=== PATIENT | male | born 1980 | race Two or more races ===

== ENCOUNTER 2024-09-03 09:31 | Emergency (ER) | payer MEDICAID, SELFPAY ==
[2024-09-03 09:46] VITALS: BP 106/71; PULSE 94; RESP 16; TEMP 36.6; O2SAT 98; BMI 17.8
--- NOTE | 2024-09-03 09:51 | PD.EDRME ---
Rapid Medical Screening Exam RME Arrival date/time: 09/03/24 09:31 43-year-old male insulin-dependent diabetic presents the emergency department today stating he went to the doctor's office to get medication refilled was instructed to go to the ER for elevated blood sugar patient does confirm that he does not take his medication regularly Chief Complaint: Recheck/Abnormal Lab/Rx Vital signs: Vital Signs Temperature 97.8 F 09/03/24 09:46 Pulse Rate 94 09/03/24 09:46 Respiratory Rate 16 09/03/24 09:46 Blood Pressure 106/71 09/03/24 09:46 Pulse Oximetry (%) 98 09/03/24 09:46 Oxygen Delivery Method Room Air 09/03/24 09:46
[2024-09-03 10:18] LABS: Base Excess, Venous 2 (-3-3); O2 Saturation, Venous 54 % (96-97); PCO2, Venous 45 mmHg (36-56); PO2, Venous 27 mmHg (15-58)
[2024-09-03 10:20] LABS: Beta Hydroxybutyrate 0.1 mmol/L (<0.6)
[2024-09-03 10:22] LABS: Basophils # (Auto) 0.2 Thou/mm3 (0.0-0.2); Basophils % (Auto) 2 % (0-2.5); Eosinophils % (Auto) 0 % (0-10); Hematocrit 45.3 % (41.0-53.0); Hemoglobin 15.7 g/dL (13.5-16.0); Immature Granulocytes % (Auto) 0 % (0-0); Immature Granulocytes Auto 0.02 Thou/mm3 (0.00-0.00); Lymphocytes # (Auto) 2.4 Thou/mm3 (1.0-4.8); Lymphocytes % (Auto) 25 % (10-50); Mean Corpuscular HGB Conc 34.7 g/dl (31.0-37.0); Mean Corpuscular Hemoglobin 29.6 pg (25.0-35.0); Mean Corpuscular Volume 85 fL (80-100); Monocytes # (Auto) 0.5 Thou/mm3 (0.0-0.8); Monocytes % (Auto) 6 % (0-12); Neutrophils # (Auto) 6.4 Thou/mm3 (1.8-7.7); Neutrophils % (Auto) 67 % (37-80); Nucleated Red Blood Cell % 0 /100 WBC (0); Platelet Count 419 Thou/mm3 (140-440); RDW Standard Deviation 39.8 fL (35.1-43.9); Red Blood Count 5.31 Miln/mm3 (4.50-5.90); White Blood Count 9.5 Thou/mm3 (3.8-10.6)
[2024-09-03 10:44] LABS: Alanine Aminotransferase 39 U/L (10-49); Albumin, Serum 4.2 gm/dL (3.5-5.0); Albumin/Globulin Ratio 1.5 (1.2-2.2); Alkaline Phosphatase 194 U/L (46-116); Anion Gap 5 (7-16); Aspartate Amino Transferase 13 U/L (0-34); BUN/Creatinine Ratio 15 Ratio (12-20); Bilirubin,Total 0.4 mg/dL (0.3-1.2); Blood Urea Nitrogen 17 mg/dL (9-23); Carbon Dioxide 27.4 mMol/L (20.0-31.0); Chloride 101 mMol/L (98-107); Creatinine (Component) 1.1 mg/dL (0.6-1.3); Estimated Creatinine Clearance 59.4 mL/min (>60); Globulin 2.8 gm/dL (2.3-3.5); Osmolality,Calculated 286 (275-295); Potassium 4.5 mMol/L (3.4-5.1); Sodium 133 mMol/L (136-145); eGFR > 60 See Note
[2024-09-03 10:46] LABS: Glucose 444 mg/dL (74-106)
[2024-09-03 11:10] LABS: Collection Type, Urine Clean Catch
[2024-09-03 11:35] LABS: Bilirubin,Urine Negative (Negative); Blood,Urine Negative (Negative); Clarity,Urine Clear (Clear/Hazy); Color,Urine Lt-Yellow (Lt Yel-Yel); Culture Indicated,Urine Not Indicated; Glucose, Urine 4+ (Negative); Ketones,Urine Trace (Negative); Leukocyte Esterase,Urine Positive (Negative); Nitrite,Urine Negative (Negative); Protein,Urine Trace (Neg - Trace); RBC,Urine 2 /hpf (0-3); Specific Gravity,Urine 1.035 (1.001-1.035); Sperm,Urine Present; Squamous Epithelial Cell,Urine 1 /hpf (0-5); Urobilinogen,Urine Negative mg/dL (0.0-1.0); WBC,Urine 4 /hpf (0-5)
[2024-09-03 11:37] LABS: Misc Send Out* See Sep Rpt
[2024-09-03] MEDS: SODIUM CHLORIDE 0.9% 1000 ML 1,000 ML 999 ML IV (14:54)
[2024-09-03] MEDS: INSULIN HUM REGULAR 1 UNIT/0.01 ML (PER UNIT) 15 UNIT IV (15:10)
--- NOTE | 2024-09-03 16:13 | PC.NURSE ---
patient left AMA at 1605. Patient educated on risk of leaving against medial advice, patient FSBS check was 600. Patient stated he did not want any more medications or to wait any longer. Patient encouraged to return to ER at anytime.
== END 2024-09-03 16:02 | disposition left against medical advice (07) ==
PROVIDERS: Nurse Practitioner Primary Care; Emergency Provider Emergency Medicine; PCP Family Medicine
DX: E11.65 Type 2 diabetes mellitus with hyperglycemia (principal); Z79.4 Long term (current) use of insulin; Z53.29 Procedure and treatment not carried out because of patient's decision for other reasons
CPT/HCPCS: 36415; 80053; 81001; 82010; 82803; 83036; 85025; 96360; 99284; J1815; J7030

== ENCOUNTER 2024-09-16 22:04 | Inpatient (IN) | payer MEDICAID, SELFPAY ==
[2024-09-16 22:42] VITALS: BP 113/75; PULSE 94; RESP 20; TEMP 36.7; O2SAT 97
--- NOTE | 2024-09-16 22:52 | XR_ITS ---
Examination: Foot, right, 3 views Technique: AP, oblique, lateral views foot, 3 views Date and time of exam: September 16, 2024 1102 hrs. Indications: Redness swelling and pain involving the foot this week Findings: Small erosion distal fifth metatarsal with associated soft tissue swelling Soft tissue defect first digit Suspicious for early cortical erosion along the shaft of the distal phalanx first digit, second digit side No fracture No foreign body Impression: Suspicious for early osteomyelitis distal phalanx first digit and distal fifth metatarsal Consider MRI foot without contrast follow-up
--- NOTE | 2024-09-16 22:53 | PD.EDRME ---
Rapid Medical Screening Exam RME Arrival date/time: 09/16/24 22:04 43-year-old male with a history of diabetes reports with complaint of wound on the foot, with swelling, redness and warmth Chief Complaint: Wound/Laceration Time Seen by Provider: 09/16/24 22:20 Vital signs: Vital Signs Temperature 98.1 F 09/16/24 22:42 Pulse Rate 94 09/16/24 22:42 Respiratory Rate 20 09/16/24 22:42 Blood Pressure 113/75 09/16/24 22:42 Pulse Oximetry (%) 97 09/16/24 22:42 Oxygen Delivery Method Room Air 09/16/24 22:42
[2024-09-16 23:33] LABS: Basophils # (Auto) 0.2 Thou/mm3 (0.0-0.2); Basophils % (Auto) 2 % (0-2.5); Eosinophils # (Auto) 0.3 Thou/mm3 (0.0-0.5); Eosinophils % (Auto) 2 % (0-10); Hematocrit 39.7 % (41.0-53.0); Hemoglobin 13.7 g/dL (13.5-16.0); Immature Granulocytes % (Auto) 0 % (0-0); Immature Granulocytes Auto 0.02 Thou/mm3 (0.00-0.00); Lymphocytes # (Auto) 3.9 Thou/mm3 (1.0-4.8); Lymphocytes % (Auto) 35 % (10-50); Mean Corpuscular HGB Conc 34.5 g/dl (31.0-37.0); Mean Corpuscular Hemoglobin 29.8 pg (25.0-35.0); Mean Corpuscular Volume 87 fL (80-100); Monocytes # (Auto) 0.8 Thou/mm3 (0.0-0.8); Monocytes % (Auto) 7 % (0-12); Neutrophils % (Auto) 54 % (37-80); Nucleated Red Blood Cell % 0 /100 WBC (0); Platelet Count 207 Thou/mm3 (140-440); RDW Standard Deviation 40.5 fL (35.1-43.9); Red Blood Count 4.59 Miln/mm3 (4.50-5.90); White Blood Count 11.2 Thou/mm3 (3.8-10.6)
[2024-09-17] VITALS (7 sets, daily range): BP systolic 112–130; BP diastolic 73–83; PULSE 77–87; RESP 16–18; TEMP 36.3–36.7; O2SAT 95–98; BMI 19.8; BMI 19.7
[2024-09-17 00:27] LABS: Lactate (Lactic Acid) 1.8 mMol/L (0.4-2.0)
[2024-09-17 00:42] LABS: Sed Rate (ESR) 24 mm/hr (0-15)
[2024-09-17 01:05] LABS: Alanine Aminotransferase 29 U/L (10-49); Albumin, Serum 4.2 gm/dL (3.5-5.0); Albumin/Globulin Ratio 1.5 (1.2-2.2); Alkaline Phosphatase 137 U/L (46-116); Anion Gap 9 (7-16); Aspartate Amino Transferase 43 U/L (0-34); BUN/Creatinine Ratio 14 Ratio (12-20); Bilirubin,Total 0.4 mg/dL (0.3-1.2); Blood Urea Nitrogen 14 mg/dL (9-23); Calcium 10.1 mg/dL (8.3-10.6); Calcium (Corrected) 10.1 mg/dL (8.5-10.1); Carbon Dioxide 25.7 mMol/L (20.0-31.0); Chloride 99 mMol/L (98-107); Estimated Creatinine Clearance 68.4 mL/min (>60); Globulin 2.8 gm/dL (2.3-3.5); Glucose 377 mg/dL (74-106); Osmolality,Calculated 283 (275-295); Procalcitonin 0.08 ng/ml (0.0-0.49); Sodium 134 mMol/L (136-145); eGFR > 60 See Note
--- NOTE | 2024-09-17 01:22 | EDNOTE_ITS ---
ED Wound/Laceration-RME/HPI General Chief Complaint: Wound/Laceration Stated Complaint: WOUND TO RIGHT FOOT/HIGH BLOOD SUGAR Time Seen by Provider: 09/16/24 22:20 Arrival date/time: 09/16/24 22:04 RME / HPI RME / HPI narrative: 09/16/24 22:04 43-year-old male with a history of diabetes reports with complaint of wound on the foot, with swelling, redness and warmth Dr. Jerez?s Main ED Evaluation: 43yo male with a history of DM presents to the ED for a wound to his right foot. Family at bedside states the patient tends to get bad calluses on his feet, reporting the patient was scraping them off a couple days ago and has since developed a wound to his right foot. Patient was seen by his PCP today and was sent over here for evaluation. No fever, chills or any other associated symptoms reported. Related Data Home Medications ?Medication ?Instructions ?Recorded ?Confirmed insulin human U-100 NPH-regulr 1 sliding scale dose hatch bcut 10/23/20 10/23/20 70-30 mix 100 unit/mL subcutaneous USEASDIRECTD susp metformin 1,000 mg tablet 1,000 mg PO BID 10/23/2009/13 Previous Rx's ?Medication ?Instructions ?Recorded ibuprofen 600 mg tablet 600 mg PO TID PRN pain #30 t abs 05/01/22 Allergies Allergy/AdvReac Type Severity Reaction Status Date / Time No Known Allergies Allergy Verified 10/23/20 22:24 Review of Systems Review of Systems Systems Reviewed: All systems reviewed, normal except as documented Past Medical History Past Medical History CARDIAC: Negative Congestive Heart Failure RESPIRATORY: Negative Chronic Obstructive Pulmonary Disease (COPD) GENITOURINARY: Negative Renal Disease ENDOCRINE: Positive Endocrine Disorders and Diabetes Mellitus Type 2; Negative Diabetes Mellitus Type 1 Social History SMOKING STATUS: Current every day smoker ED Exam Narrative Physical exam: GENERAL APPEARANCE: alert and oriented x 4, well-developed, well-nourished, no acute distress VITALS: All vitals were reviewed and the pulse ox is 97% on room air, which is normal according to my interpretation. HEENT: Normocephalic, atraumatic; pupils equal, round, reactive to light; EOMI; mucous membranes pink, moist; oropharynx clear NECK: Supple LUNGS: CTABL; no wheezes, no rales, no rhonchi HEART: Regular rate, regular rhythm; normal S1, S2; no murmurs ABDOMEN: non distended; normal BS; soft, no tenderness, no guarding, no rebound; no masses, no organomegaly, no hernia BACK: no CVA tenderness EXTREMITIES: atraumatic; no edema; macerated callus to the plantar surface of the right foot with surrounding erythema and erythema of the great toe NEUROLOGIC: awake; alert and oriented x4; cranial nerves II-XII grossly intact; no focal sensory or motor deficits PSYCHIATRIC: appropriate mood and affect SKIN: warm, dry, normal color; no rashes Course Quality Measures none Orders Category Date Time Status XR foot comp RT min 3V Stat Exams 09/16/24 22:52 Completed Blood Culture (Lab) Stat Lab 09/17/24 00:00 Received CBC Stat Lab 09/16/24 23:10 Completed CMP [Comprehensive Metabolic Panel] Stat Lab 09/17/24 00:00 Completed Lactate (Lactic Acid) Stat Lab 09/17/24 00:00 Completed Procalcitonin Stat Lab 09/17/24 00:00 Completed Sed Rate (ESR) Stat Lab 09/16/24 23:10 Completed Wound Culture and Gram Stain Stat Lab 09/16/24 22:53 Ordered Piper/Tazo Inj [Zosyn Inj] 3.375 gm Med 09/17/24 01:25 Active SODIUM CHLORIDE 0.9% (Popper) [NS 0.9% (Popper)] 50 ml IV X1 Vancomycin Inj 1,000 mg Med 09/17/24 01:25 Active Sodium Chloride 0.9% 250 ml [Ns] 250 ml IV X1 Vital Signs Vital signs: Vital Signs Temperature 98.1 F 09/16/24 22:42 Pulse Rate 94 09/16/24 22:42 Respiratory Rate 20 09/16/24 22:42 Blood Pressure 113/75 09/16/24 22:42 Pulse Oximetry (%) 97 09/16/24 22:42 Oxygen Delivery Method Room Air 09/16/24 22:42 Wound / Laceration MDM Narrative MDM Narrative:: Scribe Attestation: 09/17/24 - Ammon, Any Felix am scribing for and in the presence of Dr. Jerez. Patient data External records reviewed:: [facility] previous records (Per chart review, patient has no relevant previous ED visits.) Clinical information provided by:: patient and family Social determinants that could affect healthcare access:: none Patient has the following chronic illnesses:: DM How is presenting disease/condition affected by chronic disease/condition?: exacerbated by Evaluation data The following diagnostics were reviewed and interpreted by me:: lab results and radiology exam(s) Lab and/or radiology exams considered but not ordered:: none Interpretation Summary: WBC count is slightly elevated at 11.2, ESR is slightly elevated at 24, Glucose is 377, Lactic Acid is normal, Procalcitonin is normal, according to my interpretation. ------- [facility] Report Signed Patient: KAMYRN HASKINS Record#: [id number] Birthdate: 1980 Age/Sex: 43 / M Location: [facility] Attending Dr: Ordering Physician: Isaac Alexander PA-C Date of Service: 09/16/24 Procedure(s): XR foot comp RT min 3V Accession Number(s): [id number] cc: Anshu Major MD; Isaac Alexander PA-C~ Examination: Foot, right, 3 views Technique: AP, oblique, lateral views foot, 3 views Date and time of exam: September 16, 2024 1102 hrs. Indications: Redness swelling and pain involving the foot this week Findings: Small erosion distal fifth metatarsal with associated soft tissue swelling Soft tissue defect first digit Suspicious for early cortical erosion along the shaft of the distal phalanx first digit, second digit side No fracture No foreign body Impression: Suspicious for early osteomyelitis distal phalanx first digit and distal fifth metatarsal Consider MRI foot without contrast follow-up Dictated By: Anshu Major MD Signed By: <Electronically signed by Anshu Major MD in OV> 09/16/24 2350 Medications / Prescriptions Medications or Prescriptions considered but not ordered:: none Medication administrations:: Medication Administration History Vancomycin HCl 1,000 mg/ (Sodium Chloride) 250 mls @ 150 mls/hr IV X1 ONE Stop: 09/17/24 03:04 Piperacillin Sod/Tazobactam (Sod 3.375 gm/ Sodium Chloride) 50 mls @ 100 mls/hr IV X1 ONE Stop: 09/17/24 01:54 see above Consultations Consultation(s) initiated? (list below): Yes Consultation #1 (Physician, Specialty, Details): Discussed case with [Dr. Lucero] from Hospitalist service regarding admission. Discussed patients ED course, exam findings, labs, and radiology results. The Hospitalist [agrees] to accept the patient for admission. Time: 01:26 Diagnosis Wound Differential Diagnosis: other (diabetic foot ulcer, osteomyelitis, cellulitis) Most likely diagnosis given after review of the tests above:: see below Admission Indicated Admission indicated?: indicated Admission Request Was there a request for admission?: Yes Admission Attestation Admission request attestation: Discussed case with [] from Hospitalist service regarding admission. Discussed patients ED course, exam findings, labs, and radiology results. The Hospitalist [agrees,declines] to accept the patient for admission. Disposition Plan Disposition Plan: Admit Discharge Plan Plan Patient Disposition: Admit Acute Care w/in Hospital Prescriptions/Referrals Prescriptions/Med Rec: No Action insulin NPH and regular human 100 unit/mL (70-30) Suspension 1 sliding scale dose SUBCUT USEASDIRECTD metformin 1,000 mg Tablet 1,000 mg PO BID ibuprofen 600 mg tablet 600 mg PO TID PRN (Reason: pain) Qty: 30 0RF Referrals: Grzegorz Felix MD [Primary Care Provider] - In 1 week Problem List Clinical Impression: Diabetic foot ulcer, Hyperglycemia, Osteomyelitis, Noncompliance with medications Patient/Caregiver Discharge Instructions Print Language: Slovak Stand Alone Forms: [place] Award Info., Patient Portal Info Letter
[2024-09-17] MEDS: PIPER/TAZO INJ 3.375 GM in SODIUM CHLORIDE 0.9% (Popper) 50 ML IV (01:45)
--- NOTE | 2024-09-17 01:54 | ESHP_ITS ---
Documentation for date of: 09/17/24 [facility] History of Present Illness History of present illness: This is a 43-year-old male with PMHx of poorly controlled IDDM presenting with right foot pain. 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 He has recurrent bilateral foot calluses as a result. He tried scraping calluses on both of his feet. Evidently his right foot became swelling, foul-smelling and painful. He has been on INSULIN since 2005. Reports nonadherence to his INSULIN regimen. Often unable to obtain his INSULIN from pharmacy, other times forgets to take his INSULIN. Reports chronic bilateral lower extremity burning sensation, not relieved by OTC ANALGESICS. He sees [facility] for diabetes management, but does not follow-up regularly. Denies fever, chills, headaches, fall or trauma, chest pain, shortness of breath, cough, abdominal pain, N/V/D/C, dysuria, urinary urgency or frequency. ED COURSE: Vitals within normal limit. WBC 11.2, otherwise CBC within normal limits. Chemistry panel significant for GLUCOSE 377, sodium 134, AST 43, ALP 137. Right foot x-ray showed early osteomyelitis distal phalanx first digit and distal fifth metatarsal. PMHx: IDDM PSHx: None MEDS: INSULIN (dosage unknown) ALLERGIES: NKA FHx: Unknown SH: Denies alcohol, tobacco, or drug use. Exam Vital Signs Temp Pulse Resp BP Pulse Ox O2 Del Method 98.1 F 77 16 116/74 97 Room Air 09/17/24 01:08 09/17/24 01:08 09/17/24 01:08 09/17/24 01:08 09/17/24 01:08 09/17/24 01:08 Narrative Exam GENERAL * Cachectic, pale appearing male. No apparent distress. HEENT * NCAT.?KATIA. Oral mucosa is moist. Patent Nares NECK * Supple, nontender, no thyromegaly, no meningismus, no JVD, no step offs CHEST * RRR, no m/g/r * CTAB, no w/r/r. Symmetrical chest rise. No intercostal subcostal retraction * Atraumatic, nontender, no crepitus, symmetrical expansion. ABDOMEN * Soft, flat, nontender. No guarding/rebound tenderness/masses. * Bowel sounds presents EXTREMITIES * No edema/cyanosis.? * 2+ pulses in bilateral upper and lower extremities. SKIN * Warm and dry, no jaundice. * Right foot: Large purulent ulcer of distal plantar foot. * Chronic lipoma of left forehead noted. NEUROMUSCULAR * No lumbar or midline, no CVA, no paraspinal muscle spasm or tenderness. * Moves all 4 extremities well, with full ROM and good CSM. * HERMOSILLO x4, CN II-XII grossly intact. * No focal neurologic deficits. PSYCHIATRY * Normal mood and affect, cooperative, no SI or HI or hallucinations. Results: Labs 09/16/24 23:10 09/17/24 00:00 Labs: Short CBC 09/16/24 Range/Units 23:10 WBC 11.2 H (3.8-10.6) Thou/mm3 Hgb 13.7 (13.5-16.0) g/dL Hct 39.7 L (41.0-53.0) % Plt Count 207 D (140-440) Thou/mm3 BMP 09/17/24 00:00 Sodium 134 L Potassium 4.0 Chloride 99 Carbon Dioxide 25.7 BUN 14 Creatinine 1.0 Glucose 377 H Calcium 10.1 Liver Function 09/17/24 Range/Units 00:00 Total Bilirubin 0.4 (0.3-1.2) mg/dL AST 43 H (0-34) U/L ALT 29 (10-49) U/L Alkaline Phosphatase 137 H (46-116) U/L Albumin 4.2 (3.5-5.0) gm/dL Quality Measures Quality Measures none Medications Home Medications and Allergies Home Medications ?Medication ?Instructions ?Recorded ?Confirmed ?Type insulin human U-100 NPH-regulr 1 sliding scale dose hatch bcut 10/23/20 10/23/20 History 70-30 mix 100 unit/mL subcutaneous USEASDIRECTD susp metformin 1,000 mg tablet 1,000 mg PO BID 10/23/2009/13 History Allergies Allergy/AdvReac Type Severity Reaction Status Date / Time piperacillin (From Zosyn) AdvReac Mild Nausea Verified 09/17/24 02:32 tazobactam (From Zosyn) AdvReac Mild Nausea Verified 09/17/24 02:32 Visit Medications Acetaminophen (Acetaminophen 325 Mg Tablet) 650 mg PO Q6H PRN PRN Reason: PAIN SCALE 1-3 (mild Stop: 10/17/24 01:48 Acetaminophen (Acetaminophen 325 Mg Tablet) 650 mg PO Q6H PRN PRN Reason: Fever >100.4 Stop: 10/17/24 01:48 Hydrocodone Bitart/Acetaminophen (Hydrocodone/Apap 10/325 Tab) 1 tab PO Q4HR PRN PRN Reason: PAIN SCALE 7-10 (Severe Stop: 09/22/24 01:48 Dextrose (Dextrose 50%-Water Inj 50 Ml Syringe) 25 ml IV Q15MIN PRN PRN Reason: BG 50-70 responsive npo pt Stop: 10/17/24 01:48 Dextrose (Dextrose 50%-Water Inj 50 Ml Syringe) 50 ml IV Q15MIN PRN PRN Reason: BG <50 OR BG <70 & pt unresponsive Stop: 10/17/24 01:48 Glucagon (Glucagon Inj 1 Mg Vial) 1 mg IM Q15MIN PRN PRN Reason: BG <70, and no IV access Glucagon (Glucagon Inj 1 Mg Vial) 1 mg IM Q15MIN PRN PRN Reason: BG <70, and no IV access Heparin Sodium (Porcine) (Heparin Sod Inj 5000 Unit/Ml Vial) 5,000 unit SC BID [facility] Stop: 10/01/24 08:59 Vancomycin HCl 1,000 mg/ (Sodium Chloride) 250 mls @ 150 mls/hr IV X1 ONE Stop: 09/17/24 03:04 Cefepime HCl 2 gm/ Sodium (Chloride) 50 mls @ 100 mls/hr IV Q8HR [facility] Stop: 09/24/24 01:47 Sodium Chloride (Ns) 1,000 mls @ 75 mls/hr IV .[id number] [facility] Stop: 10/17/24 01:59 Insulin Human Lispro (Insulin Lispro (Admelog) 1 Unit/0.01 Ml Unit) [facility]; Protocol Stop: 10/17/24 07:29 Ondansetron HCl (Ondansetron Inj 2 Mg/Ml Inj 2 Ml) 4 mg IV Q6H PRN; Protocol PRN Reason: NAUSEA OR VOMITING Stop: 10/17/24 01:48 Oxycodone/Acetaminophen (Oxycodone/Apap 5/325 Tablet) 1 tab PO Q6H PRN PRN Reason: PAIN SCALE 4-6 (Moderate Stop: 09/22/24 01:48 Pharmacy Consult (Vancomycin Pharmacy To Dose 1 Each Each) 1 each IV QDAY YANETH Stop: 10/17/24 08:59 Discontinued Medications Piperacillin Sod/Tazobactam (Sod 3.375 gm/ Sodium Chloride) 50 mls @ 100 mls/hr IV X1 ONE Stop: 09/17/24 01:54 Last Admin: 09/17/24 01:45 Dose: 100 mls/hr Assessment & Plan Plan In summary: 43-year-old male with PMHx of insulin-dependent diabetes, admitted for early osteomyelitis of right foot. Appreciate recommendations from infectious disease and dietitian. Early osteomyelitis of right foot Leukocytosis Presented with 2 days of distal, plantar right foot swelling, and purulent discharge. Symptoms started following self debridement of bilateral foot calluses. He works in a dairy farm, prone to forming calluses from longstanding. WBC 11.2. No signs of symptoms of systemic infection. Right foot x-ray showed early osteomyelitis distal phalanx first digit and distal fifth metatarsal. ? Pain control ? Continue VANCOMYCIN and CEFEPIME (09/17 to present) ? Continue NS maintenance at 75 cc an hour ? Consider MRI of right foot ? Wound care ? Pending blood culture ? Pending ID recommendations IDDM Poorly controlled diabetes, medication noncompliance. Admission GLUCOSE 377. Does not know his home insulin dose. He was here on 09/03 with elevated GLUCOSE of 444, managed with IV INSULIN at this time. No signs of symptoms of DKA. ? Continues GLARGINE 15 units HS ? Continue Lispro 5 unit TID ? INSULIN sliding scale ? Accu-Cheks ? Pending A1c ? Diabetic education placed Protein calorie malnutrition, mild Has signs of pale scale, cachexia, and overall appears older than age. BMI 19.8. ? Pending registered dietitian recommendation Diabetic neuropathy Admits to chronic burning sensation in bilateral lower extremities. Sensation intact throughout. ? Started GABAPENTIN 100 mg TID Mild transaminitis AST 43, likely dehydrational. Anticipate improvement with fluids as above. ? Daily labs Health maintenance Diet: CHO consistent, low carb. GI prophylaxis: Not indicated. DVT prophylaxis: HEPARIN subcu. Antibiotics: VANCOMYCIN, CEFEPIME. CODE STATUS: Full code. Disposition: Treating osteomyelitis. Patient case was discussed with attending, Aruna Veras MD. Leah Tejada DO PGYI Attending Provider Attestation/Addendum I attest that I was physically present for the evaluation, physical examination, lab and imaging review of the patient with the residents. I discussed the case with the residents and agree with the findings and plans of care as documented above. Patient is a 43 years old male with past medical history of diabetes mellitus who presented to the ED with complaint of right foot pain. Patient has recurrent bilateral foot calluses, which he attempted to scrape couple days ago following which right foot started swelling, had foul-smelling and was painful. Patient has been on insulin regimen for his diabetes but is noncompliant with his regimen. In the ED, he was found to have glucose of 377, WBC 11.2, ALP 137. Vital signs are within normal limits. Right foot x-ray was done which shows early osteomyelitis of distal phalanx of first digit and fifth metatarsal. We will admit the patient for management of early osteomyelitis of right foot. Started on vancomycin and cefepime, we will obtain blood culture and wound culture along with ID recommendation. Started on insulin regimen for diabetes. Milena Veras MD
[2024-09-17] MEDS: ONDANSETRON INJ 2 MG/ML INJ 2 ML 4 MG IV (02:08)
[2024-09-17] MEDS: SODIUM CHLORIDE 0.9% 1000 ML 1,000 ML 75 ML IV (02:15)
[2024-09-17] MEDS: CEFEPIME INJ 2 GM in SODIUM CHLORIDE 0.9% (Popper) 50 ML IV ×4 (02:16→21:08)
[2024-09-17] MEDS: Vancomycin Inj 1,000 MG in SODIUM CHLORIDE 0.9% 250 ML 250 ML 150 MG IV (02:37)
[2024-09-17 05:43] LABS: Basophils # (Auto) 0.2 Thou/mm3 (0.0-0.2); Basophils % (Auto) 2 % (0-2.5); Eosinophils # (Auto) 0.2 Thou/mm3 (0.0-0.5); Eosinophils % (Auto) 2 % (0-10); Hemoglobin 13.1 g/dL (13.5-16.0); Immature Granulocytes % (Auto) 0 % (0-0); Immature Granulocytes Auto 0.02 Thou/mm3 (0.00-0.00); Lymphocytes # (Auto) 3.6 Thou/mm3 (1.0-4.8); Lymphocytes % (Auto) 32 % (10-50); Mean Corpuscular HGB Conc 34.5 g/dl (31.0-37.0); Mean Corpuscular Hemoglobin 29.9 pg (25.0-35.0); Mean Corpuscular Volume 87 fL (80-100); Monocytes # (Auto) 0.8 Thou/mm3 (0.0-0.8); Monocytes % (Auto) 7 % (0-12); Neutrophils # (Auto) 6.4 Thou/mm3 (1.8-7.7); Neutrophils % (Auto) 57 % (37-80); Nucleated Red Blood Cell % 0 /100 WBC (0); Platelet Count 215 Thou/mm3 (140-440); RDW Standard Deviation 40.6 fL (35.1-43.9); Red Blood Count 4.38 Miln/mm3 (4.50-5.90); White Blood Count 11.2 Thou/mm3 (3.8-10.6)
[2024-09-17] MEDS: GABAPENTIN 100 MG CAPSULE PO ×3 (06:01→21:08)
[2024-09-17 07:18] LABS: Alanine Aminotransferase 23 U/L (10-49); Albumin, Serum 3.5 gm/dL (3.5-5.0); Albumin/Globulin Ratio 1.5 (1.2-2.2); Alkaline Phosphatase 135 U/L (46-116); Anion Gap 10 (7-16); Aspartate Amino Transferase 23 U/L (0-34); BUN/Creatinine Ratio 14 Ratio (12-20); Bilirubin,Total 0.3 mg/dL (0.3-1.2); Blood Urea Nitrogen 13 mg/dL (9-23); Calcium (Corrected) 9.4 mg/dL (8.5-10.1); Carbon Dioxide 25.5 mMol/L (20.0-31.0); Chloride 99 mMol/L (98-107); Creatinine (Component) 0.9 mg/dL (0.6-1.3); Estimated Creatinine Clearance 75.5 mL/min (>60); Globulin 2.3 gm/dL (2.3-3.5); Osmolality,Calculated 288 (275-295); Phosphorous 2.8 mg/dL (2.4-5.1); Potassium 3.9 mMol/L (3.4-5.1); Sodium 134 mMol/L (136-145); Total Protein 5.8 gm/dL (5.7-8.2); eGFR > 60 See Note
[2024-09-17 07:24] LABS: Glucose 451 mg/dL (74-106)
[2024-09-17] MEDS: INSULIN LISPRO (AdmeLOG) 1 UNIT/0.01 ML UNIT SC ×2 (07:32→12:19)
[2024-09-17] MEDS: INSULIN LISPRO (AdmeLOG) 1 UNIT/0.01 ML UNIT 5 UNIT SC (07:34)
[2024-09-17] MEDS: HEPARIN SOD INJ 5000 UNIT/ML VIAL SC ×2 (08:02→20:29)
--- NOTE | 2024-09-17 09:52 | XR_ITS ---
Examination: MRI right foot, without contrast Date and time of exam: September 17, 2024 1050 hrs. Indications: Nonhealing wound right foot Technique: Multiple axial sagittal and coronal images of the right thyroid have been obtained with the Siemens high-resolution 1.5 Sharon MRI scanner. Images obtained include T2-weighted fat-suppressed sagittal sections, TR 3500, TE 46, T2 weighted coronal fat suppressed images, TR 3050, TE 84, T2-weighted transverse fat suppressed images, TR 3260, TE 63, proton density transverse images, TR 4720 TE 46, and T1 weighted coronal images, TR 560, TE 13. Findings: Subtle edema dorsum and plantar aspect of the foot No miryam cortical bone destruction involving tarsal bones metatarsals or digits No soft tissue abscess Biconvex thickening of the Achilles tendon Mild plantar fasciitis Cystic change in the talus Moderate narrowing tibiotalar joint Impression: No soft tissue abscess No miryam cortical bone destruction Achilles tendinosis Mild plantar fasciitis Suggest follow-up plain films right foot in 2 weeks
[2024-09-17] MEDS: INSULIN GLARGINE (Lantus) 5 UNIT/0.05 ML (PER 5 UNITS) SC (10:08)
[2024-09-17 10:25] LABS: Misc Send Out* See Sep Rpt
[2024-09-17] MEDS: INSULIN LISPRO (AdmeLOG) 1 UNIT/0.01 ML UNIT 7 UNIT SC (12:20)
--- NOTE | 2024-09-17 14:16 | ESPR_ITS ---
Documentation for date of: 09/17/24 Subjective Subjective Interval history: Patient seen at bedside. He is a 43-year-old male with a past medical history of type II DM presented to the ED with right foot swelling and pain after he tried to scrape of the callus. Significant findings in the ED includes leukocytosis and hyperglycemia. Chest x-ray showed suspicion of early osteomyelitis of the first digit and distal fifth metatarsal. Additionally, recent A1c done about 2 weeks ago was significantly elevated >14. Follow-up MRI of foot was done, no cortical bone destruction and no soft tissue abscess. Surgery consulted, will follow recommendations. Also pending ID recs. In the interim, will optimize blood glucose management, diabetic education and continue antibiotics IV cefepime and vancomycin. 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 Eyes open, symmetrical, & clear CARDIO: No chest pain on palpation. Heart RRR, no obvious murmurs PULM: No noted coughing/dyspnea. Lungs CTA B/L GI: Abdomen soft, nondistended, no pain on palpation. BSx4 URO/RN DOCUMENT IMPROVEMENT:: No further abnormalities noted. SKIN/MSK/EXT: On plantar aspect of right foot in area of first metatarsal, tender, no discharge noted. Objective Labs 09/17/24 04:20 09/17/24 04:20 Labs: Laboratory Results - last 24 hr 09/16/24 09/17/24 09/17/24 23:10 00:00 04:20 WBC 11.2 H 11.2 H RBC 4.59 4.38 L Hgb 13.7 13.1 L Hct 39.7 L 38.0 L MCV 87 87 MCH 29.8 29.9 MCHC 34.5 34.5 RDW Std Deviation 40.5 40.6 Plt Count 207 D 215 Neut % (Auto) 54 57 Lymph % (Auto) 35 32 [place]he % (Auto) 7 7 Eos % (Auto) 2 2 Baso % (Auto) 2 2 Neut # (Auto) 6.0 6.4 Lymph # (Auto) 3.9 3.6 [place]he # (Auto) 0.8 0.8 Eos # (Auto) 0.3 0.2 Baso # (Auto) 0.2 0.2 Immature Gran # (Auto) 0.02 H 0.02 H Absolute Nucleated RBC 0.00 0.00 Immature Gran % 0 0 Nucleated RBC % 0 0 ESR 24 H Sodium 134 L 134 L Potassium 4.0 3.9 Chloride 99 99 Carbon Dioxide 25.7 25.5 Anion Gap 9 10 BUN 14 13 Creatinine 1.0 0.9 Estim Creat Clear Calc 68.4 75.5 eGFR > 60 > 60 BUN/Creatinine Ratio 14 14 Glucose 377 H 451 H* D Estimated Ave Glu mg/dL Cancelled Hemoglobin A1c Cancelled Calculated Osmolality 283 288 Lactic Acid 1.8 Calcium 10.1 9.0 Corrected Calcium 10.1 9.4 Phosphorus 2.8 Magnesium 2.0 Total Bilirubin 0.4 0.3 AST 43 H 23 ALT 29 23 Alkaline Phosphatase 137 H 135 H Total Protein 7.0 5.8 Albumin 4.2 3.5 D Globulin 2.8 2.3 Albumin/Globulin Ratio 1.5 1.5 Procalcitonin 0.08 Quality Measures Quality Measures none Assessment & Plan Assessment Current Active Medications: Generic Name Dose Route Start Last Admin Trade Name Freq PRN Reason Stop Dose Admin Acetaminophen 650 mg 09/17/24 01:49 Acetaminophen 325 Mg Tablet PO 10/17/24 01:48 Q6H PRN PAIN SCALE 1-3 (mild Acetaminophen 650 mg 09/17/24 01:49 Acetaminophen 325 Mg Tablet PO 10/17/24 01:48 Q6H PRN Fever >100.4 Hydrocodone Bitart/Acetaminophen 1 tab 09/17/24 01:49 Hydrocodone/Apap 10/325 Tab PO 09/22/24 01:48 Q4HR PRN PAIN SCALE 7-10 (Severe Dextrose 25 ml 09/17/24 01:49 Dextrose 50%-Water Inj 50 Ml Syringe IV 10/17/24 01:48 Q15MIN PRN BG 50-70 responsive npo pt Dextrose 50 ml 09/17/24 01:49 Dextrose 50%-Water Inj 50 Ml Syringe IV 10/17/24 01:48 Q15MIN PRN BG <50 OR BG <70 & pt unresponsive Gabapentin 100 mg 09/17/24 06:00 09/17/24 13:04 Gabapentin 100 Mg Capsule PO 10/17/24 05:59 100 mg TID YANETH Administration Glucagon 1 mg 09/17/24 01:49 Glucagon Inj 1 Mg Vial IM Q15MIN PRN BG <70, and no IV access Heparin Sodium (Porcine) 5,000 unit 09/17/24 09:00 09/17/24 08:02 Heparin Sod Inj 5000 Unit/Ml Vial SC 10/01/24 08:59 5,000 unit BID YANETH Administration Cefepime HCl 2 gm/ Sodium 50 mls @ 100 mls/hr 09/17/24 01:48 09/17/24 13:04 Chloride IV 09/24/24 01:47 100 mls/hr Q8HR YANETH Administration Sodium Chloride 1,000 mls @ 75 mls/hr 09/17/24 02:00 09/17/24 02:15 Ns IV 09/17/24 15:19 75 mls/hr .[id number] ONE Administration Vancomycin/Sodium Chloride 200 mls @ 120 mls/hr 09/17/24 22:00 Vancomycin/Ns 1 Gm Ivpb IV 09/24/24 21:59 BID@1000,2200 [facility] Protocol Insulin Glargine 15 unit 09/17/24 21:00 Insulin Glargine (Lantus) 5 Unit/0.05 Ml (Per 5 Units) SC 10/17/24 20:59 HS YANETH Insulin Human Lispro 0 unit 09/17/24 11:30 09/17/24 12:19 Insulin Lispro (Admelog) 1 Unit/0.01 Ml Unit SC 10/17/24 11:29 5 unit AC YANETH Administration Protocol Insulin Human Lispro 7 unit 09/17/24 12:00 09/17/24 12:20 Insulin Lispro (Admelog) 1 Unit/0.01 Ml Unit SC 10/17/24 11:59 7 unit TIDWM YANETH Administration Ondansetron HCl 4 mg 09/17/24 01:49 09/17/24 02:08 Ondansetron Inj 2 Mg/Ml Inj 2 Ml IV 10/17/24 01:48 4 mg Q6H PRN Administration NAUSEA OR VOMITING Protocol Oxycodone/Acetaminophen 1 tab 09/17/24 01:49 Oxycodone/Apap 5/325 Tablet PO 09/22/24 01:48 Q6H PRN PAIN SCALE 4-6 (Moderate Pharmacy Consult 1 each 09/17/24 09:00 Vancomycin Pharmacy To Dose 1 Each Each IV 10/17/24 08:59 QDAY PRN PROTOCOL Plan Summary: The patient is a 43-year-old male with a past medical history of type II DM who presented to the ED on 09/17/2024 with right foot swelling and pain. #Osteomyelitis ruled out # Diabetic foot ulcer stage III #Leukocytosis The patient presented with right foot pain and swelling, after he tried to scrape off a callus. He also reports that there was some purulent discharge. Initial labs significant for leukocytosis with WBC of 11.2, patient was afebrile. X-ray of the right foot showed suspicion for early osteomyelitis in the distal phalanx of the first digit and distal fifth metatarsal. Follow-up MRI of the foot was done which showed no cortical bone destruction, no soft tissue abscess. Patient is currently on IV cefepime and vancomycin, pending surgical and ID recommendations. Plan: -Continue IV cefepime and vancomycin -Pending cultures -Wound care -Optimize blood glucose control -Surgery consulted, appreciate recommendations -ID consulted, appreciate recommendations #History of type II DM #Diabetic neuropathy The patient has a history of type II DM and is on insulin lispro 15 units 3 times daily. Per at bedside, the patient does not manage properly as sometimes he does not refill his medications or does not use them. Had extensive conversation with patient at bedside about the importance of proper management and complications that can arise from poor glucose control. He reports some burning sensation in bilateral lower extremities, and examination sensation is intact. Plan: -Diabetic education -SC glargine 15 units at bedtime -Insulin lispro 7 units 3 times daily with meals -Insulin sliding scale -Hypoglycemic protocols in place -Gabapentin 100 mg 3 times daily Health maintenance: Dispo: MedSurg Diet: Carb consistent low DVT: SC heparin Myles: None Lines: Peripheral PT: Not ordered Code: Full code Case was discussed with Dr Winters PGY-2 and attending physician, Dr Ashlie Nagy MD PGY-1 Disclaimer: This note was dictated by speech recognition. Minor errors in cube cutter may be present due to voice recognition software. LPatient examined and case discussed with the team including attending physician. Note reviewed, I agree with the care plan as documented. Patient is a 43-year-old male with a past medical history of type II DM who presented to the ED on 09/17/2024 with right foot swelling and pain. Foot XR was suspicious for osteomyelitis of the distal phalanx first digit and distal fifth metatarsal. General surgery Dr Chaidez is consulted for further evaluation re: need for surgical intervention. Follow up Foot MRI was negative for any soft tissue abscess or miryam cortical bone destruction, however remarkable for Achilles tendinosis and mild plantar fasciitis. A1c currently greater than 14%. No evidence of DKA at this time. Plan: - Follow up surgery recommendations - On IV Vancomycin for GPC AND Cefepime for pseudomonas coverage (09/17 - - counseled extensively at bedside in regards to his uncontrolled diabetes. - Diabetic education ordered. - Continue basal and bolus insulin and titrate to blood sugar to target of 140- 180 while hospitalized. - Will continue gabapentin for neuropathy. Nicolas Winters MD, PGY 2 Disclaimer: The document below may not be free of grammatical/phonetic/typographic errors due to use of voice recognition software. This does not dissuade from the commitment to providing health care with the patient's best interest in mind. L Attending Provider Attestation/Addendum I have examined the patient, reviewed labs and imaging findings, discussed the case with the resident(s), and reviewed entered orders. I agree with the plan of care as outlined in this note, with these additional summaries/recommendations: Patient and family seen at bedside. Patient was admitted overnight for diabetic wound, suspicion for osteomyelitis, and diabetes mellitus type 2 with hyperglycemia. Right foot x-ray suspicious for early osteomyelitis of distal phalanx first digit and distal fifth metatarsal. ESR 24. Order CRP. Order MRI foot. General surgery and infectious disease already consulted. Recommendations appreciated. Continue IV antibiotics. Blood culture results pending. Patient was counseled extensively at bedside in regards to his uncontrolled diabetes. A1c currently greater than 14%. Order diabetic education. Continue basal and bolus insulin and titrate to blood sugar target of 140-180 while hospitalized. No evidence of DKA at this time. Continue gabapentin for neuropathy. Patient was updated on the plan and in agreement. All questions answered to satisfaction. Repeat hematology and chemistry panel in AM. Dr. Ashlie MD
[2024-09-17] MEDS: INSULIN GLARGINE (Lantus) 5 UNIT/0.05 ML (PER 5 UNITS) 15 UNIT SC (20:29)
[2024-09-17] MEDS: VANCOMYCIN/NS 1 GM IVPB 200 ML IV (21:48)
[2024-09-18] VITALS: BP 143/93; PULSE 79; RESP 18; TEMP 36.4; O2SAT 98
[2024-09-18 04:00] VITALS: BP 128/78; PULSE 82; RESP 18; TEMP 36.4; O2SAT 96
[2024-09-18] MEDS: CEFEPIME INJ 2 GM in SODIUM CHLORIDE 0.9% (Popper) 50 ML IV (05:11)
[2024-09-18] MEDS: GABAPENTIN 100 MG CAPSULE PO (05:12)
[2024-09-18 05:50] LABS: Basophils # (Auto) 0.2 Thou/mm3 (0.0-0.2); Basophils % (Auto) 2 % (0-2.5); Eosinophils # (Auto) 0.2 Thou/mm3 (0.0-0.5); Eosinophils % (Auto) 2 % (0-10); Hemoglobin 12.7 g/dL (13.5-16.0); Immature Granulocytes % (Auto) 0 % (0-0); Immature Granulocytes Auto 0.02 Thou/mm3 (0.00-0.00); Lymphocytes # (Auto) 3.7 Thou/mm3 (1.0-4.8); Lymphocytes % (Auto) 36 % (10-50); Mean Corpuscular HGB Conc 33.4 g/dl (31.0-37.0); Mean Corpuscular Hemoglobin 29.3 pg (25.0-35.0); Mean Corpuscular Volume 88 fL (80-100); Monocytes # (Auto) 0.7 Thou/mm3 (0.0-0.8); Monocytes % (Auto) 7 % (0-12); Neutrophils # (Auto) 5.5 Thou/mm3 (1.8-7.7); Neutrophils % (Auto) 53 % (37-80); Nucleated Red Blood Cell % 0 /100 WBC (0); Platelet Count 224 Thou/mm3 (140-440); RDW Standard Deviation 42.8 fL (35.1-43.9); Red Blood Count 4.34 Miln/mm3 (4.50-5.90); White Blood Count 10.3 Thou/mm3 (3.8-10.6)
[2024-09-18 06:58] LABS: Alanine Aminotransferase 36 U/L (10-49); Albumin, Serum 3.2 gm/dL (3.5-5.0); Albumin/Globulin Ratio 1.5 (1.2-2.2); Alkaline Phosphatase 106 U/L (46-116); Anion Gap 5 (7-16); Aspartate Amino Transferase 39 U/L (0-34); BUN/Creatinine Ratio 20 Ratio (12-20); Bilirubin,Total 0.3 mg/dL (0.3-1.2); Blood Urea Nitrogen 14 mg/dL (9-23); C-Reactive Protein < 0.4 mg/dL (0.0-0.9); Calcium 8.7 mg/dL (8.3-10.6); Calcium (Corrected) 9.3 mg/dL (8.5-10.1); Carbon Dioxide 28.9 mMol/L (20.0-31.0); Chloride 105 mMol/L (98-107); Creatinine (Component) 0.7 mg/dL (0.6-1.3); Estimated Creatinine Clearance 97.1 mL/min (>60); Globulin 2.2 gm/dL (2.3-3.5); Glucose 172 mg/dL (74-106); Magnesium 1.8 mg/dL (1.6-2.6); Osmolality,Calculated 282 (275-295); Phosphorous 2.8 mg/dL (2.4-5.1); Potassium 4.1 mMol/L (3.4-5.1); Sodium 139 mMol/L (136-145); Total Protein 5.4 gm/dL (5.7-8.2); eGFR > 60 See Note
[2024-09-18] MEDS: INSULIN LISPRO (AdmeLOG) 1 UNIT/0.01 ML UNIT SC (07:14)
[2024-09-18] MEDS: INSULIN LISPRO (AdmeLOG) 1 UNIT/0.01 ML UNIT 7 UNIT SC (07:15)
[2024-09-18 08:00] VITALS: BP 109/71; PULSE 84; RESP 16; TEMP 36.1; O2SAT 95
[2024-09-18] MEDS: HEPARIN SOD INJ 5000 UNIT/ML VIAL SC (08:22)
[2024-09-18] MEDS: VANCOMYCIN/NS 1 GM IVPB 200 ML IV (09:26)
[2024-09-18 11:47] VITALS: BP 119/85; PULSE 86; RESP 16; TEMP 36; O2SAT 98
--- NOTE | 2024-09-18 13:52 | PC.CC ---
S/W patient's via phone and changed preferred pharmacy to [facility] as [facility] will not accept prescriptions from outside providers. PA submitted and approved until 09/18/25 for [employer] sensors.
--- NOTE | 2024-09-18 15:48 | ESDS_ITS ---
<Statement entered by Nicolas Winters MD - 09/18/24 16:06> Patient was examined with the team including attending physician. Note reviewed, I agree with the discharge plan as documented. - Nicolas Winters M.D. PGY2 Disclaimer: The document below may not be free of grammatical/phonetic/typographic errors due to use of voice recognition software. This does not dissuade from the commitment to providing health care with the patient's best interest in mind. Planned Discharge Date 09/18/24 DS: Providers Provider Date of admission: 09/17/24 01:50 Primary care physician: Grzegorz Felix MD Admitting Provider: Milena Veras MD Attending Provider on Admission: Solis Mcleod DO Consults: 09/17/24 01:51 Consult to Infectious Diseases Stat Comment: Right foot early osteo Consulting Provider: Rommel Purvis 09/17/24 01:56 Referral Registered Dietitian Routine Comment: Referral Registered Dietitian Routine Comment: 09/17/24 04:10 Health Equity Referral - Knowledge Deficit Routine Comment: Positive screening for knowledge deficit needs. 09/17/24 07:49 Consult to General Surgery Routine Comment: Rt foot osyeomyelitis Consulting Provider: Dominique Chaidez 09/17/24 11:38 Referral Registered Dietitian Routine Comment: 09/18/24 08:00 Referral Wound Care Routine Comment: 09/18/24 11:36 Referral OP Wound Healing Dept Routine Comment: Bilateral feet DM ulcers with Callous Attending Provider on DC: Solis Mcleod DO Discharging Provider: Rene Nagy MD DS: Diagnosis Problem List Completed Was Problem List Reviewed/Reconciled?: Yes Hospital Course Hospital Course Hospital course: The patient is a 43-year-old male with a past medical history of type II DM, poorly controlled with noncompliance on insulin who presented to the ED on 09/17/2024 with right foot pain. Per the patient, he had tried scraping of some foot calluses that he had as a result of prolonged standing on his job which led to pain, swelling and some foul-smelling discharge. In the ED, significant labs showed leukocytosis and hyperglycemia. Right foot x-ray which showed suspicion for early osteomyelitis in the distal phalanx of the right first and fifth digit. The patient was admitted for further evaluation and management of possible osteomyelitis. He was started on IV cefepime and vancomycin. MRI was done which showed no cortical bone destruction or soft tissue abscess. During the course of hospitalization, the patient blood glucose control was optimized and extensive diabetic education was provided. Today, he is clinically and hemodynamically stable and medically cleared for discharge. He will continue to take antibiotics ciprofloxacin and clindamycin for 10 more days as well as a new insulin regimen. He is recommended to follow-up with PCP or the [facility] within 1 week of discharge as well as the outpatient wound care clinic. #Osteomyelitis rule out #Diabetic foot ulcer, stage III #History of type II DM #Possible diabetic neuropathy Discharge instructions: Follow up with your PCP within 1 week of discharge. If you don't have a PCP, [facility] [address] Call [phone] to make an appointment Follow the outpatient wound care clinic regularly [phone] Continue ciprofloxacin and clindamycin twice daily for 10 more days Use insulin degludec 15units daily at night Take inulin lispro 7units 3 times daily with meals Ensure to check your blood glucose before every meal Follow a low carb diet to avoid glucose spikes Return to the ED if your symptoms worsen Case was discussed with Dr Winters PGY-2 and attending physician, Dr Shani Nagy MD PGY-1 Disclaimer: This note was dictated by speech recognition. Minor errors in public policy professor may be present due to voice recognition software. 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 Eyes open, symmetrical, & clear CARDIO: No chest pain on palpation. Heart RRR, no obvious murmurs PULM: No noted coughing/dyspnea. Lungs CTA B/L GI: Abdomen soft, nondistended, no pain on palpation. BSx4 URO/INDEPENDENT INSURANCE ADJUSTER:: No further abnormalities noted. SKIN/MSK/EXT: On plantar aspect of right foot in area of first metatarsal and 5th digit, tender, no discharge noted. Discharge Plan Plan Patient Disposition: HOME (Self Care) Patient condition on transfer: Stable Care Plan Goals: Follow up with your PCP within 1 week of discharge. If you don't have a PCP, [facility] [address] Call [phone] to make an appointment Follow the outpatient wound care clinic regularly [phone] Continue ciprofloxacin and clindamycin twice daily for 10 more days Use insulin degludec 15units daily at night Take inulin lispro 7units 3 times daily with meals Ensure to check your blood glucose before every meal Follow a low carb diet to avoid glucose spikes Return to the ED if your symptoms worsen Prescriptions/Referrals Prescriptions/Med Rec: New clindamycin HCl [Cleocin HCl] 150 mg capsule 450 mg PO TID 10 Days Qty: 90 0RF insulin degludec 100 unit/mL (3 mL) insulin pen 15 unit subcut QDAY Qty: 15 0RF insulin lispro 100 unit/mL insulin pen 7 unit subcut TIDWM Qty: 15 0RF ciprofloxacin HCl 500 mg tablet 500 mg PO BID 10 Days Qty: 20 0RF (DME) FreeStyle Norberto 3 Plus Sensor Device See Rx Instructions .Route Qty: 1 0RF Rx Instructions: As directed Discontinued insulin NPH and regular human 100 unit/mL (70-30) Suspension 1 sliding scale dose SUBCUT USEASDIRECTD metformin 1,000 mg Tablet 1,000 mg PO BID insulin lispro [Humalog KwikPen Insulin] 100 unit/mL insulin pen 15 unit SUBCUT .TIDac Referrals: Grzegorz Felix MD [Primary Care Provider] - Lashae Emanuel MD [Physician] - Patient/Caregiver Discharge Instructions Other Discharge Activity Instructions:: Follow up with your PCP within 1 week of discharge. If you don't have a PCP, come to the [facility] at [address]. Call [phone] to make an appointment Follow the outpatient wound care clinic regularly Continue ciprofloxacin and clindamycin twice daily for 10 more days Use insulin degludec 15units daily at night Take inulin lispro 7units 3 times daily with meals Ensure to check your blood glucose before every meal Follow a low carb diet to avoid glucose spikes Return to the ED if your symptoms worsen Education Materials: Diabetes Treat Severe Foot Infecs, Diabetes: Inspecting Your Feet, Diabetes Shopping Preparing Meals, Diabetes: Caring for Your Body, Wound Care, Diabetes: Living Your Life, Diabetes Learn Serve Portion Size, Diabetes: Meal Planning, Foot Care Diabetes Steps Print Language: Hebrew Stand Alone Forms: [place] Award Info., Patient Portal Info Letter Discharge Order Discharge Orders: Discharge (Routine); Ordered 09/18/24 Ordered By: Rene Nagy Quality Discharge Quality Measures VTE prophylaxis MD Attestestation MD Attestation I have discussed and was present for the essential components of the discharge history, physical examination, diagnosis, and discharge treatment plan with the resident. I agree with the patient's discharge care as documented by the resident and amended herein by me. Tyree Mcleod DO. The patient understood all discharge instructions, all questions were answered satisfactorily. The patient was instructed to return to the Emergency Department is symptoms worsened or persisted. Patient was stable, afebrile and tolerating p.o. intake at time of discharge home. Although this document has been carefully reviewed, there may still be some phonetic and other typographical errors. These errors are purely grammatical due to imperfections in the software program and should not be construed in any way to compromise the substance of the patient's medical care during this visit.
== END 2024-09-18 12:37 | disposition home or self-care (01) | DRG 344 ==
LOC: SERX 09-17 01:28 → SERHOLD 09-17 02:58 → S3NX 09-17 03:21
PROVIDERS: Physician Assistant; Admitting Provider Student in an Organized Health Care Education/Training Program; Emergency Provider Emergency Medicine; PCP Family Medicine; Visit Provider Student in an Organized Health Care Education/Training Program
DX: E11.69 Type 2 diabetes mellitus with other specified complication (principal); M86.171 Other acute osteomyelitis, right ankle and foot; E11.65 Type 2 diabetes mellitus with hyperglycemia; R74.01 Elevation of levels of liver transaminase levels; E11.621 Type 2 diabetes mellitus with foot ulcer; E11.40 Type 2 diabetes mellitus with diabetic neuropathy, unspecified; E44.1 Mild protein-calorie malnutrition; Z68.1 Body mass index [BMI] 19.9 or less, adult; D72.829 Elevated white blood cell count, unspecified; F17.200 Nicotine dependence, unspecified, uncomplicated; L84 Corns and callosities; L97.509 Non-pressure chronic ulcer of other part of unspecified foot with unspecified severity; Z91.199 Patient's noncompliance with other medical treatment and regimen due to unspecified reason; Z79.4 Long term (current) use of insulin; Z79.899 Other long term (current) drug therapy; Z79.84 Long term (current) use of oral hypoglycemic drugs
CPT/HCPCS: 36415; 73630; 73718; 80053; 80202; 83036; 83605; 83735; 84100; 84145; 85025; 85652; 86140; 87040; 87070; 87205; J0692; J1643; J1815; J2405; J2543; J3370; J3371; J7030; J7050; A9270